=== PATIENT | female | born 1950 | race Caucasian/White ===

== ENCOUNTER 2022-12-05 14:49 | Inpatient (IN) | payer MEDICARE, MEDICAID, SELFPAY ==
[2022-12-05 15:36] VITALS: BP 140/83; PULSE 129; RESP 18; TEMP 36.6; O2SAT 96; BMI 23.4
[2022-12-05 16:47] LABS: Basophils % 0.2 %; Eosinophils % 0.1 %; Hematocrit 35.3 % (37.0-47.0); Hemoglobin 11.3 g/dL (11.5-15.3); Lymphocytes # 0.8 10^3/uL (0.8-4.8); Lymphocytes % 9.4 %; Mean Corpuscular Hemoglobin 30.2 pg (28.0-34.0); Mean Corpuscular Volume 94.4 fl (81-99); Mean Platelet Volume 9.6 fL (7.4-10.4); Monocytes # 0.7 10^3/uL (0.2-0.9); Monocytes % 7.9 %; Neutrophils # 7.16 10^3/uL (1.8-7.7); Neutrophils % 82.1 %; Nucleated Red Blood Cells % 0 %; Platelet Count 284 10^3/cmm (130-400); Red Blood Count 3.74 10^6/uL (4.1-5.3); Red Cell Distribution Width 11.6 % (12.1-15.1); White Blood Count 8.7 10^3/uL (4.0-10.0)
[2022-12-05 17:30] LABS: Lactic Sepsis W/Reflex 1.5 mmol/L (0.5-2.2)
[2022-12-05 17:40] LABS: Alanine Aminotransferase 11 U/L (0-33); Albumin Level 3.4 g/dL (3.5-5.2); Alkaline Phosphatase 72 U/L (35-105); Anion Gap 16.1 (5-19); Aspartate Amino Transferase 19 U/L (0-32); Blood Urea Nitrogen 34 mg/dL (8-23); Calcium 9.5 mg/dL (8.5-10.5); Carbon Dioxide 28 mmol/L (22-29); Chloride 101 mmol/L (98-107); Globulin 4.1 g/dL (1.3-4.6); Glomerular Filtration Rate 18.2 mL/min (90-130); Glucose 189 mg/dL (65-115); Magnesium 1.7 mg/dL (1.7-2.3); NT Pro B Type Natriuretic Pept 2022 pg/mL (0-125); Osmolality Calculated 305 mOsm/kg (285-295); Phosphorus 1.9 mg/dL (2.5-4.5); Potassium 4.1 mmol/L (3.5-5.1); Sodium 141 mmol/L (136-145); Total Bilirubin 0.2 mg/dL (0.15-1.2); Total Protein 7.5 g/dL (6.6-8.7)
--- NOTE | 2022-12-05 18:33 | W.ED.EXTPRO ---
HPI - Extremity Problem General: Chief complaint: Extremity Injury, Lower Stated complaint: swollen legs Time Seen by Provider: 12/05/22 18:16 Limitations: altered mental status (Patient has Alzheimer's and is unable to contribute any history..) History of Present Illness: Patient presents to the ER with complaints of bilateral lower extremity edema, chronic wounds, dressings that have been changed for a long time, kidney failure and maggots on her left leg underneath the bandage. Patient is [place]. Patient's family states she does not walk and they let her just sit all day with her feet dangling. Family states they never check on her. She has had her dressing to her legs for a long long time per family. They took her to see her blueprinting machine operator Dr. Molina in [place] and he said she only has 20% kidney function and she needed to go to the ER to be admitted to the hospital. Patient brought her here because we are closer to them then [place] yes. Review of Systems General: Reports: ROS unobtainable due to mental status (Limited history obtained by family members.) Physical Exam Const: COMMON NORMALS: no acute distress, average body habitus, alert and well nourished HENMT: COMMON NORMALS: normocephalic, atraumatic, hearing grossly normal bilaterally, Normal external nose present and moist oral mucous membranes HEAD & SCALP: normocephalic and atraumatic NOSE: Normal external nose present Neck/C-Spine: COMMON NORMALS: full ROM, no lymphadenopathy, supple, no meningeal signs, no JVD and Thyroid normal THYROID: Thyroid normal Chest: COMMONS NORMALS: normal inspection of the chest and normal palpation of entire chest wall Resp: COMMON NORMALS: normal respiratory effort, No retractions, No use of accessory muscles and clear to auscultation bilaterally AUSCULTATION: clear to auscultation bilaterally Cardio: COMMON NORMALS: no JVD, regular rate, regular rhythm, S1 normal heart sound present and S2 normal heart sound present RATE: regular rate RHYTHM: regular rhythm HEART SOUNDS: S1 normal heart sound present and S2 normal heart sound present GI: COMMON NORMALS: Normal to inspection, nondistended, normoactive bowel sounds present, Soft to palpation, non-tender, No hepatosplenomegaly present and no masses PALPATION: Yes Soft to palpation and Yes No hepatosplenomegaly present Extremity: NARRATIVE EXTREMITY EXAM: Bilateral dressings to bilateral lower extremities. When dressings were removed multiple maggots were noted on left extremity. Areas are red irritated dry scaly but are not weeping I do not have an odor at the moment. Neuro: SENSORIUM/ORIENTATION: Yes alert MENINGEAL SIGNS: Yes no meningeal signs Course Vital Signs: Vital signs: Vital Signs Temperature 97.8 F 12/05/22 15:36 Pulse Rate 129 H 12/05/22 15:36 Respiratory Rate 18 12/05/22 15:36 Blood Pressure 140/83 12/05/22 15:36 Pulse Oximetry 96 12/05/22 15:36 Oxygen Delivery Me thod Room Air 12/05/22 15:36 MDM - Extremity (Nontraumatic) Medical Decision Making Patient presents to the ER for worsening kidney failure and also bilateral leg wounds with the left foot having maggots upon arrival. Patient was tachycardic upon arrival with a pulse of 129 bpm. Lab work was obtained, chest x-ray, EKG BUN/creatinine was elevated at 34 and 2.6, lactic acid was 1.5, magnesium 1.7, phosphorus 1.9, BNP was 2022, chest x-ray showed no acute findings EKG showed sinus tachycardia, patient was given 1 L bolus of normal saline Dr. Hu was consulted for observation secondary to bilateral leg wounds and renal insufficiency. Differential Diagnosis Unlikely herpes zoster, gout, cellulitis, superficial thrombophlebitis, deep venous thrombosis of upper extremity, lower extremity edema or deep vein thrombosis of lower extremity Medical Records I reviewed the patient's medical records. Lab Data I reviewed the patient's lab results. 12/05/22 16:36 12/05/22 16:36 Radiology Impressions Chest X-Ray 12/05/22 18:38 IMPRESSION: No acute findings. Laboratory Results WBC 8.7 10^3/uL (4.0-10.0) 12/05/22 16:36 RBC 3.74 10^6/uL (4.1-5.3) L 12/05/22 16:36 Hgb 11.3 g/dL (11.5-15.3) L 12/05/22 16:36 Hct 35.3 % (37.0-47.0) L 12/05/22 16:36 MCV 94.4 fl (81-99) 12/05/22 16:36 MCH 30.2 pg (28.0-34.0) 12/05/22 16:36 MCHC 32.0 g/dL (30.0-36.0) 12/05/22 16:36 RDW 11.6 % (12.1-15.1) L 12/05/22 16:36 Plt Count 284 10^3/cmm (130-400) 12/05/22 16:36 MPV 9.6 fL (7.4-10.4) 12/05/22 16:36 Neut % (Auto) 82.1 % 12/05/22 16:36 Lymph % (Auto) 9.4 % 12/05/22 16:36 [place] % (Auto) 7.9 % 12/05/22 16:36 Eos % (Auto) 0.1 % 12/05/22 16:36 Baso % (Auto) 0.2 % 12/05/22 16:36 Neut # (Auto) 7.16 10^3/uL (1.8-7.7) 12/05/22 16:36 Lymph # (Auto) 0.8 10^3/uL (0.8-4.8) 12/05/22 16:36 [place] # (Auto) 0.7 10^3/uL (0.2-0.9) 12/05/22 16:36 Eos # (Auto) 0.0 10^3/uL (0.0-0.8) 12/05/22 16:36 Baso # (Auto) 0.0 10^3/uL (0.0-0.1) 12/05/22 16:36 Nucleated RBC % (auto) 0 % 12/05/22 16:36 Nucleated RBCs # 0.0 /100WBC 12/05/22 16:36 Sodium 141 mmol/L (136-145) 12/05/22 16:36 Potassium 4.1 mmol/L (3.5-5.1) 12/05/22 16:36 Chloride 101 mmol/L (98-107) 12/05/22 16:36 Carbon Dioxide 28 mmol/L (22-29) 12/05/22 16:36 Anion Gap 16.1 (5-19) 12/05/22 16:36 BUN 34 mg/dL (8-23) H 12/05/22 16:36 Creatinine 2.6 mg/dL (0.5-0.9) H 12/05/22 16:36 GFR Calculation 18.2 mL/min (90-130) L 12/05/22 16:36 Glucose 189 mg/dL (65-115) H 12/05/22 16:36 Calculated Osmolality 305 mOsm/kg (285-295) H 12/05/22 16:36 Lactic Acid 1.5 mmol/L (0.5-2.2) 12/05/22 16:36 Calcium 9.5 mg/dL (8.5-10.5) 12/05/22 16:36 Phosphorus 1.9 mg/dL (2.5-4.5) L 12/05/22 16:36 Magnesium 1.7 mg/dL (1.7-2.3) 12/05/22 16:36 Total Bilirubin 0.2 mg/dL (0.15-1.2) 12/05/22 16:36 AST 19 U/L (0-32) 12/05/22 16:36 ALT 11 U/L (0-33) 12/05/22 16:36 Alkaline Phosphatase 72 U/L (35-105) 12/05/22 16:36 NT-Pro-B Natriuret Pep 2022 pg/mL (0-125) H 12/05/22 16:36 Total Protein 7.5 g/dL (6.6-8.7) 12/05/22 16:36 Albumin 3.4 g/dL (3.5-5.2) L 12/05/22 16:36 Globulin 4.1 g/dL (1.3-4.6) 12/05/22 16:36 EKG Data EKG 1: I personally reviewed and interpreted this EKG as follows: EKG interpretation date: 12/05/22 EKG interpretation time: 18:58 Prior EKG tracings: not available for review Interpretation: EKG showed sinus tachycardia with a ventricular rate of 127 bpm, IL interval 169, QRS duration 70, QTc of 459, nonspecific ST and T wave abnormality Discharge Plan Discharge Patient Disposition: Placed in Observation Clinical Impression: Open wound of both lower extremities, Acute kidney insufficiency, Tachycardia, Elevated brain natriuretic peptide (BNP) level Condition: Stable Coding Level of Care Code ED [employer] for [employer]g Fwd
--- NOTE | 2022-12-05 18:38 | XRR_ITS ---
PROCEDURE INFORMATION: Exam: XR Chest Exam date and time: 12/05/2022 7:40 PM Age: 72 years old Clinical indication: Other: Ble swelling; Additional info: Elevated bnp TECHNIQUE: Imaging protocol: Radiologic exam of the chest. Views: 1 view. COMPARISON: No relevant prior studies available. FINDINGS: Lungs: Unremarkable. No consolidation. Pleural spaces: Unremarkable. No pleural effusion. No pneumothorax. Heart/Mediastinum: Unremarkable. No cardiomegaly. Bones/joints: Unremarkable. XR/XR chest 1V portable [id number] IMPRESSION: No acute findings.
--- NOTE | 2022-12-05 18:38 | ECG_ITS ---
[facility] Test Date: 2022-12-05 Pat Name: Toma Dickson Department: Room: Gender: Female Breaster: : 1950 Requested By: Harshad Martins Order Number: [id number] Hanane MD: Barry Nathan M.D. Measurements Intervals [place] Rate: 127 P: 48 WI: 169 QRS: 26 QRSD: 70 T: 33 QT: 384 QTc: 559 Interpretive Statements SINUS TACHYCARDIA LOW QRS VOLTAGE IN PRECORDIAL LEADS [QRS DEFLECTION < 1.0 mV IN CHEST LEADS] NONSPECIFIC ST & T-WAVE ABNORMALITY ABNORMAL RHYTHM ECG No previous ECG available for comparison Electronically Signed On 12-06-2022 20:21:24 CDT by Barry Nathan M.D. [id number]
[2022-12-05] MEDS: sodium chloride 0.9% 1,000 ML 999 ML IV (19:31)
[2022-12-05 20:56] VITALS: BP 112/87; PULSE 113; RESP 16; O2SAT 100
[2022-12-05 21:38] VITALS: BP 106/57; PULSE 110; RESP 17; TEMP 36.8; O2SAT 95
--- NOTE | 2022-12-05 21:50 | P.HP_ITS ---
Providers/Chief Complaint Admitting Physician: Tuan Hu MD Primary Care Provider: Raffy Yarbrough M.D. Chief Complaint: swollen legs History of Present Illness Toma Dickson is a 72 year old female with a past medical history significant for chronic wounds and chronic kidney disease who presents to the emergency department from facility with reports of worsening renal function and worsening bilateral lower extremity wounds. Upon assessment, patient denies any complaints. She denies fevers, chills, nausea or emesis. She denies any past medical or surgical history. Does not appear to be a reliable historian. She appears to have dementia or presently currently confused. No family currently available for collateral information. Collateral from ED provider is the patient is a long time resident of [facility]. She reportedly saw her quality facilitator Dr Yarbrough in [place] where her kidney numbers were worsening and he reportedly recommended she be hospitalized. Family reported brought her to [facility] as it was closer for them rather than alternative hospitals. In the ED, patient was reportedly found to have maggots under one of her bandages covering her legs. Patient denies past medical, surgical, and family medical problems. Denies tobacco, alcohol and drug use. Review of Systems Narrative: A complete review of systems was obtained and is negative except as stated in HPI. Medications/Allergies Allergies Allergy/AdvReac Type Severity Reaction Status Date / Time cephalexin [From Keflex] Allergy ALGY-Anaphy Verified 12/05/22 21:04 laxis PFSH Acute PFSH: Medical History Renal insufficiency Vitals/I&O/Wt Last Vital Signs Temp 98.2 F 12/05/22 21:38 Pulse 110 H 12/05/22 21:38 Resp 17 12/05/22 21:38 BP 106/57 12/05/22 21:38 Pulse Ox 95 12/05/22 21:38 O2 Del Method Room Air 12/05/22 20:56 Weight last 48 hrs Weight 54.431 kg Physical Exam Narrative: General: Patient is awake. Alert. Head: Normocephalic. Atraumatic. EOM intact. Neck: No JVD. Cardiovascular: Tachycardic. No gallops. No murmurs. 2+ edema in BLE. Lungs: Clear to auscultation, no use of accessory muscles, no crackles or wheezes. Skin: No jaundice. Chronic skin changes with hemostasis in bilateral lower extremities. Chronic appearing wound bilateral lower extremities as well. No draining tracts or purulent material noted. Abdomen: Normal bowel sounds, abdomen soft and nontender. Genito Urinary: Genital exam not performed since complaints not related. Rectal: Rectal exam not performed since no symptoms indicated blood loss. Extremities: No cyanosis or clubbing. Musculoskeletal: No swollen or erythematous joints. Neurological: Moves all 4 extremities. No myoclonus. Data 12/05/22 16:36 12/05/22 16:36 Micro: Microbiology 12/05/22 19:31 Blood Culture - Preliminary Blood SPECIMEN COLLECTED 12/05/22 19:04 Blood Culture - Preliminary Blood SPECIMEN COLLECTED A&P Assessment and plan (1) Renal insufficiency: BUN 34 creatinine 2.6 Baseline renal function unknown Patient following with nephrology, Dr Yarbrough in [place] Start IV fluids Monitor renal function Obtain renal ultrasound Avoid nephrotoxins Monitor electrolytes Obtain further medical history when family present (2) Open wound of both lower extremities: Reports maggots were present per ED provider Lower extremities were cleaned in ED prior to my evaluation Continue routine wound care Qualifiers: Encounter type: initial encounter Qualified Code(s): S81.801A - Unspecified open wound, right lower leg, initial encounter; S81.802A - Unspecified open wound, left lower leg, initial encounter (3) Physical debility: Will need to see if case management can clarify baseline functional status with facility May need therapy (4) Altered mental state: Suspect dementia Obtain collateral information as above Avoid sedating medications Plan DVT ppx: Heparin Code: Assume full Attestations Medical Necessity Statement*: Expected hospitalization not to cross 2 midnights. Coding Level of Care Code Acute Code for [facility] Fwd Diagnoses Renal insufficiency N28.9 Open wound of both lower extremities S81.801A; S81.802A Encounter type: initial encounter Physical debility R53.81 Altered mental state R41.82
[2022-12-05 23:00] VITALS: BP 130/66; PULSE 104; RESP 16; TEMP 36.9; O2SAT 97
[2022-12-05 23:32] LABS: C Reactive Protein 25.4 mg/L (0.0-4.9)
[2022-12-05] MEDS: heparin 5,000 unit/mL INJ 1 mL 5000 UNIT SUBCUT (23:35)
[2022-12-05] MEDS: lactated ringers 1,000 ML 75 ML IV (23:36)
[2022-12-05 23:40] LABS: Procalcitonin 0.08 ng/mL (0-0.5)
[2022-12-06] VITALS: BP 130/66; PULSE 104; RESP 16; TEMP 36.9; O2SAT 97
--- NOTE | 2022-12-06 02:09 | US_ITS ---
WS: [id number] ULTRASOUND RENAL TECHNIQUE: Ultrasound examination of both kidneys. CLINICAL INFORMATION: renal insufficiency COMPARISON: None. FINDINGS: RIGHT: 7.3 mm simple cyst inferior pole RIGHT kidney Right kidney is normal in size and appearance. Echogenicity: Normal. Cortical thickness: 1.4 cm; Normal. Hydronephrosis: None. Perinephric fluid: None. Right kidney measures: 9.9 cm x 5.2 cm x 4.8 cm. LEFT: Left kidney is normal in size and appearance. Echogenicity: Normal. Cortical thickness: 1.0 cm; Normal. Hydronephrosis: None. Perinephric fluid: None. Left kidney measures: 8.1 cm x 3.5 cm x 3.3 cm. Normal visualized aorta. Prevoid bladder volume 167 cc. Post void bladder volume 3 cc Bilateral ureter jets visualized. US/US renal BI* [id number] IMPRESSION: 1. No hydronephrosis in either kidney. 2. Bilateral ureteral jets visualized. 3. No significant post void residual.
[2022-12-06 03:45] VITALS: BP 118/76; PULSE 103; RESP 17; TEMP 36.9; O2SAT 91
[2022-12-06 05:00] LABS: Basophils % 0.1 %; Eosinophils % 0.4 %; Hematocrit 30.6 % (37.0-47.0); Hemoglobin 9.7 g/dL (11.5-15.3); Lymphocytes # 1.1 10^3/uL (0.8-4.8); Lymphocytes % 14.9 %; Mean Corpuscular HGB Conc 31.7 g/dL (30.0-36.0); Mean Corpuscular Hemoglobin 29.6 pg (28.0-34.0); Mean Corpuscular Volume 93.3 fl (81-99); Mean Platelet Volume 9.6 fL (7.4-10.4); Monocytes # 0.5 10^3/uL (0.2-0.9); Monocytes % 7.2 %; Neutrophils # 5.74 10^3/uL (1.8-7.7); Neutrophils % 77.1 %; Nucleated Red Blood Cells % 0 %; Platelet Count 265 10^3/cmm (130-400); Red Blood Count 3.28 10^6/uL (4.1-5.3); Red Cell Distribution Width 11.7 % (12.1-15.1); White Blood Count 7.5 10^3/uL (4.0-10.0)
[2022-12-06 05:27] LABS: Anion Gap 11.7 (5-19); Blood Urea Nitrogen 28 mg/dL (8-23); Calcium 8.5 mg/dL (8.5-10.5); Carbon Dioxide 28 mmol/L (22-29); Chloride 106 mmol/L (98-107); Glomerular Filtration Rate 23.3 mL/min (90-130); Glucose 149 mg/dL (65-115); Magnesium 1.6 mg/dL (1.7-2.3); Osmolality Calculated 300 mOsm/kg (285-295); Phosphorus 2.8 mg/dL (2.5-4.5); Potassium 4.7 mmol/L (3.5-5.1); Sodium 141 mmol/L (136-145)
[2022-12-06 07:30] VITALS: BP 123/73; PULSE 87; RESP 20; TEMP 36.3; O2SAT 93
--- NOTE | 2022-12-06 08:24 | PC.PHAR ---
Addendum entered by Lisa May 12/06/22 09:10: waiting on med list from [facility] Original Note: UNABLE TO DO MED REC AT THIS TIME- WAITING FOR PTS CONTACT [facility] TO CALL BACK
[2022-12-06] MEDS: magnesium sulfate premix 2 GM/50 ML PIGGYBACK IV (10:19)
[2022-12-06 11:21] VITALS: BP 134/68; PULSE 94; RESP 22; TEMP 36.3; O2SAT 98
[2022-12-06] MEDS: heparin 5,000 unit/mL INJ 1 mL 5000 UNIT SUBCUT ×2 (11:34→23:42)
[2022-12-06 16:00] VITALS: BP 131/71; PULSE 76; RESP 20; TEMP 36.2; O2SAT 90
--- NOTE | 2022-12-06 17:41 | P.PN_ITS ---
Subjective Subjective: She is awake, semireclined in bed, holding onto a doll. Interactive, denies pain. Cannot provide history. Pencil sharpener and scissors were found in her pocket earlier in the morning. Vitals/I&O/Wt Last Vital Signs Temp 97.1 F L 12/06/22 16:00 Pulse 76 12/06/22 16:00 Resp 20 H 12/06/22 16:00 BP 131/71 12/06/22 16:00 Pulse Ox 90 12/06/22 16:00 O2 Del Method Room Air 12/06/22 16:00 12/06/22 12/06/22 12/06/22 06:59 14:59 22:59 Intake Total 1000 / 1000 240 / 240 Balance 1000 / 1000 240 / 240 Weight last 48 hrs Weight 54.431 kg Physical Exam Const: COMMON NORMALS: alert ORIENTATION/CONSCIOUSNESS: Yes awake HENMT: COMMON NORMALS: oropharynx normal Neck/C-Spine: COMMON NORMALS: no JVD Resp: COMMON NORMALS: normal respiratory effort and clear to auscultation bilaterally AUSCULTATION: clear to auscultation bilaterally Cardio: COMMON NORMALS: no JVD, regular rhythm, S1 normal heart sound present, S2 normal heart sound present and No murmurs present (Cardio) RHYTHM: regular rhythm HEART SOUNDS: S1 normal heart sound present and S2 normal heart sound present GI: COMMON NORMALS: Normal to inspection, nondistended, normoactive bowel sounds present, Soft to palpation and non-tender PALPATION: Yes Soft to palpation Extremity: COMMON NORMALS: no joint enlargement OTHER: Some nonpitting edema Neuro: COMMON NORMALS: moves all extremities SENSORIUM/ORIENTATION: Yes alert Skin: OTHER: Erythema, abrasion, shallow ulceration bilateral lower anterolateral legs above the ankle. Worse on the left. Mild oozing. No purulence. No tunneling or undermining. Data 12/06/22 04:40 12/06/22 04:40 Micro: Microbiology 12/05/22 19:31 Blood Culture - Preliminary Blood SPECIMEN COLLECTED 12/05/22 19:04 Blood Culture - Preliminary Blood SPECIMEN COLLECTED A&P Assessment and plan (1) Renal insufficiency: Mild improvement in creatinine down to 2.1. BUN 28. Continue IV fluid challenge. Noted results of kidney ultrasound, no obstruction/hydronephrosis. Hold diuretics. At risk of fluid overload/CHF, monitor volume status. Oxygenation. Hold fenofibrate. Monitor electrolytes. Sodium noted 141, bicarb 28, anion gap 11.7. Recheck chemistry. Baseline renal function unknown Patient following with nephrology, Dr Yarbrough in [place] (2) Open wound of both lower extremities: Wounds appear clean. Elevate lower extremities. Continue wound care. Depending on progress, consider compression dressing. Follow-up with wound care clinic. Qualifiers: Encounter type: initial encounter Qualified Code(s): S81.801A - Unsp ecified open wound, right lower leg, initial encounter; S81.802A - Unspecified open wound, left lower leg, initial encounter (3) Physical debility: Will need to see if case management can clarify baseline functional status with facility Noted CM documentation. Requires 1-2 person assistance at baseline. CM working with family with regards to placement. (4) Altered mental state: Possible acute encephalopathy superimposed on chronic cognitive dysfunction. Possible metabolic encephalopathy secondary to RUTH. Continue to reorient. Patient requires long-term care. Normally 1-2 person assist. Avoid sedating medications Unable to reach sister on listed phone number, goes straight to voicemail. Afebrile. Without leukocytosis. No suggestion of acute infection. Plan Confirm home medications. Hypomagnesemia: Replace. Recheck magnesium. Discussed with nursing, case management. Attestations Medical Necessity Statement*: Admission over 2 midnights required for assessment and management of RUTH, IV fluid challenge, at risk of fluid overload, possible acute encephalopathy in a lady with baseline cognitive dysfunction. Diagnoses Renal insufficiency N28.9 Open wound of both lower extremities S81.801A; S81.802A Encounter type: initial encounter Physical debility R53.81 Altered mental state R41.82
[2022-12-06 19:17] LABS: Add Urine Microscopic? NO; Charge for UA Resulting for Rev
[2022-12-06 19:26] LABS: Bilirubin Urine Neg (Negative); Blood Urine Neg (Negative); Glucose Urine UA Norm (Normal); Ketones Urine Negative (Negative); Leukocyte Esterase Urine Negative (Negative); Nitrate Urine Negative (Negative); Protein Urine Neg (Negative); Sulfosalicylic Acid Urine Negative (Negative); Urine Appearance Clear (CLEAR); Urine Color Yellow (Yellow); Urobilinogen Urine Norm (Negative); pH Urine 8 (5-7)
[2022-12-06 20:00] VITALS: BP 165/79; PULSE 99; RESP 18; TEMP 36.3; O2SAT 97
[2022-12-06] MEDS: lactated ringers 1,000 ML 75 ML IV (23:39)
[2022-12-07] VITALS: BP 114/65; PULSE 87; RESP 17; TEMP 36.7; O2SAT 96
[2022-12-07 03:34] VITALS: BP 115/61; PULSE 83; RESP 17; TEMP 36.8; O2SAT 95
[2022-12-07 05:31] LABS: Basophils % 0.4 %; Eosinophils # 0.2 10^3/uL (0.0-0.8); Eosinophils % 2.5 %; Hematocrit 32.6 % (37.0-47.0); Hemoglobin 10.2 g/dL (11.5-15.3); Lymphocytes # 1.1 10^3/uL (0.8-4.8); Lymphocytes % 16.3 %; Mean Corpuscular HGB Conc 31.3 g/dL (30.0-36.0); Mean Corpuscular Hemoglobin 29.7 pg (28.0-34.0); Mean Corpuscular Volume 94.8 fl (81-99); Mean Platelet Volume 9.2 fL (7.4-10.4); Monocytes # 0.5 10^3/uL (0.2-0.9); Monocytes % 7.1 %; Neutrophils # 4.94 10^3/uL (1.8-7.7); Neutrophils % 73.3 %; Nucleated Red Blood Cells % 0 %; Platelet Count 257 10^3/cmm (130-400); Red Blood Count 3.44 10^6/uL (4.1-5.3); Red Cell Distribution Width 11.7 % (12.1-15.1); White Blood Count 6.8 10^3/uL (4.0-10.0)
[2022-12-07 05:55] LABS: Anion Gap 12.3 (5-19); Blood Urea Nitrogen 25 mg/dL (8-23); Calcium 8.9 mg/dL (8.5-10.5); Carbon Dioxide 25 mmol/L (22-29); Chloride 108 mmol/L (98-107); Glomerular Filtration Rate 24.6 mL/min (90-130); Glucose 125 mg/dL (65-115); Magnesium 1.9 mg/dL (1.7-2.3); Osmolality Calculated 298 mOsm/kg (285-295); Potassium 4.3 mmol/L (3.5-5.1); Sodium 141 mmol/L (136-145)
[2022-12-07 08:45] VITALS: BP 142/72; PULSE 112; RESP 17; TEMP 36.3; O2SAT 92
[2022-12-07] MEDS: heparin 5,000 unit/mL INJ 1 mL 5000 UNIT SUBCUT ×2 (10:52→22:21)
[2022-12-07 11:55] VITALS: BP 128/63; PULSE 101; RESP 18; TEMP 36.7; O2SAT 96
[2022-12-07] MEDS: lactated ringers 1,000 ML 75 ML IV (12:07)
--- NOTE | 2022-12-07 13:26 | PM.PN ---
Subjective Subjective: She denies any complaints. She knows she is in [place]. Unable to tell me that she is in the hospital. He denies any pain or discomfort. Vitals/I&O/Wt Last Vital Signs Temp 98.0 F 12/07/22 11:55 Pulse 101 H 12/07/22 11:55 Resp 18 12/07/22 11:55 BP 128/63 12/07/22 11:55 Pulse Ox 96 12/07/22 11:55 O2 Del Method Room Air 12/07/22 11:55 12/06/22 12/07/22 12/07/22 22:59 06:59 14:59 Intake Total 170 / 1410 1295 / 1295 Output Total 100 / 100 375 / 475 Balance 70 / 1310 -375 / 935 1295 / 1295 Weight last 48 hrs Weight 54.431 kg Physical Exam Const: COMMON NORMALS: alert ORIENTATION/CONSCIOUSNESS: Yes awake HENMT: COMMON NORMALS: oropharynx normal Neck/C-Spine: COMMON NORMALS: no JVD Resp: COMMON NORMALS: normal respiratory effort and clear to auscultation bilaterally AUSCULTATION: clear to auscultation bilaterally Cardio: COMMON NORMALS: no JVD, regular rhythm, S1 normal heart sound present, S2 normal heart sound present and No murmurs present (Cardio) RHYTHM: regular rhythm HEART SOUNDS: S1 normal heart sound present and S2 normal heart sound present GI: COMMON NORMALS: Normal to inspection, nondistended, normoactive bowel sounds present, Soft to palpation and non-tender PALPATION: Yes Soft to palpation Extremity: COMMON NORMALS: no joint enlargement OTHER: Some nonpitting edema Neuro: COMMON NORMALS: moves all extremities SENSORIUM/ORIENTATION: Yes alert Skin: OTHER: Erythema, abrasion, shallow ulceration bilateral lower anterolateral legs above the ankle. Worse on the left. Behavioral Modification Assistant today. No purulence. No tunneling or undermining. Data 12/07/22 05:22 12/07/22 05:22 Micro: Microbiology 12/05/22 19:31 Blood Culture - Preliminary Blood NEGATIVE TO DATE 12/05/22 19:04 Blood Culture - Preliminary Blood NEGATIVE TO DATE A&P Assessment and plan (1) Renal insufficiency: Further mild improvement in creatinine down to 2. BUN 25. Discussing with her sister she states that she had seen a optical model maker and tester previously in [place]. We will request records. Continue gentle IV hydration. Reassess renal function. Monitor for fluid overload. Diuretics on hold. Bicarb 25, anion gap 12.3. Sodium 141, potassium 4.3. Hold diuretics. At risk of fluid overload/CHF, monitor volume status. Oxygenation. Hold fenofibrate. Recheck chemistry Baseline renal function unknown, although per discussion with her sister does have CKD as well. (2) Open wound of both lower extremities: Wounds appear clean. Elevate lower extremities. Continue wound care. Depending on progress, consider compression dressing. Follow-up with wound care clinic. Qualifiers: Encounter type: initial encounter Qualified Code(s): S81.801A - Unspecified open wound, right lower leg, initial encounter; S81.802A - Unspecified open wound, left lower leg, initial encounter (3) Physical debility: Will need to see if case management can clarify baseline functional status with facility Noted CM documentation. Requires 1-2 person assistance at baseline. Unable to function dependently, case management working with family regarding placement arrangements. (4) Altered mental state: Sister states she is currently at baseline mental status. Possible acute encephalopathy resolved superimposed on chronic cognitive dysfunction. Possible metabolic encephalopathy secondary to RUTH. Continue to reorient. Patient requires long-term care. Normally 1-2 person assist. Avoid sedating medications Sister gives history of developmental delay with cognitive dysfunction. Unable to function dependently, case management working with family regarding placement arrangements. Afebrile. Without leukocytosis. No suggestion of acute infection. Plan Resuming several of her home medications. Hypomagnesemia: Magnesium doing better, 1.9. Recheck magnesium. Discussed with case management during rounds. Attestations Medical Necessity Statement*: Continue admission for assessment and management of RUTH, wound care, post discharge planning and arrangements for a lady with developmental delay with cognitive function, unable to independently. Diagnoses Renal insufficiency N28.9 Open wound of both lower extremities S81.801A; S81.802A Encounter type: initial encounter Physical debility R53.81 Altered mental state R41.82
[2022-12-07 15:16] VITALS: BP 140/66; PULSE 84; RESP 18; TEMP 36.9
[2022-12-07] MEDS: atorvastatin 40 mg Tablet 20 MG PO (16:34)
[2022-12-07] MEDS: sodium bicarbonate 650 mg Tablet PO (16:34)
[2022-12-07 20:00] VITALS: BP 136/79; PULSE 98; RESP 18; TEMP 36.6; O2SAT 96
[2022-12-08] VITALS: BP 126/78; PULSE 68; RESP 16; TEMP 36.6; O2SAT 95
[2022-12-08] MEDS: lactated ringers 1,000 ML 30 ML IV (01:44)
[2022-12-08 03:52] VITALS: BP 128/88; PULSE 65; RESP 14; TEMP 36.7; O2SAT 98
[2022-12-08 04:55] LABS: Basophils % 0.6 %; Eosinophils # 0.2 10^3/uL (0.0-0.8); Eosinophils % 3.3 %; Hematocrit 31.6 % (37.0-47.0); Lymphocytes # 1.4 10^3/uL (0.8-4.8); Lymphocytes % 21.9 %; Mean Corpuscular HGB Conc 31.6 g/dL (30.0-36.0); Mean Corpuscular Hemoglobin 29.9 pg (28.0-34.0); Mean Corpuscular Volume 94.6 fl (81-99); Mean Platelet Volume 9.9 fL (7.4-10.4); Monocytes # 0.5 10^3/uL (0.2-0.9); Monocytes % 8.4 %; Neutrophils # 4.17 10^3/uL (1.8-7.7); Neutrophils % 65.2 %; Nucleated Red Blood Cells % 0 %; Platelet Count 270 10^3/cmm (130-400); Red Blood Count 3.34 10^6/uL (4.1-5.3); Red Cell Distribution Width 11.6 % (12.1-15.1); White Blood Count 6.4 10^3/uL (4.0-10.0)
[2022-12-08 05:14] LABS: Anion Gap 13.2 (5-19); Blood Urea Nitrogen 22 mg/dL (8-23); Calcium 8.5 mg/dL (8.5-10.5); Carbon Dioxide 26 mmol/L (22-29); Chloride 105 mmol/L (98-107); Glomerular Filtration Rate 34.3 mL/min (90-130); Glucose 118 mg/dL (65-115); Magnesium 1.7 mg/dL (1.7-2.3); Osmolality Calculated 294 mOsm/kg (285-295); Potassium 4.2 mmol/L (3.5-5.1); Sodium 140 mmol/L (136-145)
[2022-12-08 08:00] VITALS: BP 156/90; PULSE 81; RESP 16; TEMP 36.4; O2SAT 95
[2022-12-08] MEDS: aspirin 81 mg EC Tablet PO (10:37)
[2022-12-08] MEDS: metoprolol succinate ER (24 HR) 100 mg Tablet PO (10:37)
[2022-12-08] MEDS: sodium bicarbonate 650 mg Tablet PO ×3 (10:37→20:14)
[2022-12-08] MEDS: rivaroxaban 10 mg Tablet PO (10:37)
[2022-12-08] MEDS: magnesium sulfate premix 2 GM/50 ML PIGGYBACK IV (10:45)
--- NOTE | 2022-12-08 11:17 | PM.PN ---
Subjective Subjective: Denies pain or discomfort. Vitals/I&O/Wt Last Vital Signs Temp 97.5 F L 12/08/22 08:00 Pulse 81 12/08/22 08:00 Resp 16 12/08/22 08:00 BP 156/90 12/08/22 08:00 Pulse Ox 95 12/08/22 08:00 O2 Del Method Room Air 12/08/22 08:00 12/07/22 12/08/22 12/08/22 22:59 06:59 14:59 Intake Total 240 / 1535 1000 / 2535 360 / 360 Balance 240 / 1535 1000 / 2535 360 / 360 Physical Exam Const: COMMON NORMALS: alert ORIENTATION/CONSCIOUSNESS: Yes awake HENMT: COMMON NORMALS: oropharynx normal Neck/C-Spine: COMMON NORMALS: no JVD Resp: COMMON NORMALS: normal respiratory effort and clear to auscultation bilaterally AUSCULTATION: clear to auscultation bilaterally Cardio: COMMON NORMALS: no JVD, regular rhythm, S1 normal heart sound present, S2 normal heart sound present and No murmurs present (Cardio) RHYTHM: regular rhythm HEART SOUNDS: S1 normal heart sound present and S2 normal heart sound present GI: COMMON NORMALS: Normal to inspection, nondistended, normoactive bowel sounds present, Soft to palpation and non-tender PALPATION: Yes Soft to palpation Extremity: COMMON NORMALS: no joint enlargement OTHER: Some nonpitting edema Neuro: COMMON NORMALS: moves all extremities SENSORIUM/ORIENTATION: Yes alert Skin: OTHER: Erythema, abrasion, shallow ulceration bilateral lower anterolateral legs above the ankle. Worse on the left. 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 No purulence. No tunneling or undermining. Data 12/08/22 04:35 12/08/22 04:35 A&P Assessment and plan (1) Renal insufficiency: Noted improving renal function, BUN down to 22, creatinine down to 1.5. Anion gap 13.2. Bicarb 26. Sodium 140, potassium 4.2. We will try to hold additional IV fluid. Hold off diuretic for now. Reassess renal function. Oral intake as tolerating. Hold diuretics. At risk of fluid overload/CHF, monitor volume status. Oxygenation. Hold fenofibrate. Recheck chemistry Baseline renal function unknown, although per discussion with her sister does have CKD as well. (2) Open wound of both lower extremities: Requesting compression dressings. Discussed with PT. Wounds appear clean. Elevate lower extremities. Continue wound care. Follow-up with wound care clinic. Qualifiers: Encounter type: initial encounter Qualified Code(s): S81.801A - Unspecified open wound, right lower leg, initial encounter; S81.802A - Unspecified open wound, left lower leg, initial encounter (3) Physical debility: Will need to see if case management can clarify baseline functional status with facility Noted CM documentation. Requires 1-2 person assistance at baseline. Unable to function dependently, case management working with family regarding placement arrangements. (4) Altered mental state: Sister states she is currently at baseline mental status. Possible acute encephalopathy resolved superimposed on chronic cognitive dysfunction. Possible metabolic encephalopathy secondary to RUTH. Continue to reorient. Patient requires long-term care. Normally 1-2 person assist. Avoid sedating medications Sister gives history of developmental delay with cognitive dysfunction. Unable to function dependently, case management working with family regarding placement arrangements. Afebrile. Without leukocytosis. No suggestion of acute infection. Plan Anemia: Hemoglobin appears steady around 10. MCV 94.6. Suspect secondary to CKD. Will need to follow-up with PCP. Hypomagnesemia: Magnesium down to 1.7. Replace magnesium. Recheck Discussed with case management, arrangements underway for placement. Attestations Medical Necessity Statement*: Continue admission for assessment and management of RUTH, wound care, post discharge planning and arrangements for a lady with developmental delay with cognitive function, unable to independently. Diagnoses Renal insufficiency N28.9 Open wound of both lower extremities S81.801A; S81.802A Encounter type: initial encounter Physical debility R53.81 Altered mental state R41.82
[2022-12-08] MEDS: ferrous sulfate EC 325 mg Tablet PO (11:53)
[2022-12-08 12:00] VITALS: BP 144/79; PULSE 77; RESP 17; TEMP 36.5; O2SAT 94
[2022-12-08 16:00] VITALS: BP 109/58; PULSE 67; RESP 15; TEMP 36.3; O2SAT 91
[2022-12-08] MEDS: atorvastatin 40 mg Tablet 20 MG PO (17:48)
[2022-12-08 19:42] VITALS: BP 131/52; PULSE 65; RESP 14; TEMP 36.6; O2SAT 94
[2022-12-09] VITALS: BP 135/80; PULSE 57; RESP 14; TEMP 36.5; O2SAT 95
[2022-12-09 03:45] VITALS: BP 126/79; PULSE 66; RESP 16; TEMP 36.6; O2SAT 95
[2022-12-09 05:18] LABS: Basophils % 0.7 %; Eosinophils # 0.2 10^3/uL (0.0-0.8); Eosinophils % 4.2 %; Hematocrit 33.9 % (37.0-47.0); Hemoglobin 10.8 g/dL (11.5-15.3); Lymphocytes # 1.6 10^3/uL (0.8-4.8); Lymphocytes % 28.1 %; Mean Corpuscular HGB Conc 31.9 g/dL (30.0-36.0); Mean Corpuscular Hemoglobin 30.1 pg (28.0-34.0); Mean Corpuscular Volume 94.4 fl (81-99); Mean Platelet Volume 9.5 fL (7.4-10.4); Monocytes # 0.5 10^3/uL (0.2-0.9); Monocytes % 8.8 %; Neutrophils # 3.33 10^3/uL (1.8-7.7); Neutrophils % 57.7 %; Nucleated Red Blood Cells % 0 %; Platelet Count 251 10^3/cmm (130-400); Red Blood Count 3.59 10^6/uL (4.1-5.3); Red Cell Distribution Width 11.7 % (12.1-15.1); White Blood Count 5.8 10^3/uL (4.0-10.0)
[2022-12-09 05:36] LABS: Anion Gap 11.3 (5-19); Blood Urea Nitrogen 21 mg/dL (8-23); Calcium 8.2 mg/dL (8.5-10.5); Carbon Dioxide 28 mmol/L (22-29); Chloride 105 mmol/L (98-107); Glomerular Filtration Rate 29.7 mL/min (90-130); Glucose 104 mg/dL (65-115); Magnesium 1.8 mg/dL (1.7-2.3); Osmolality Calculated 293 mOsm/kg (285-295); Potassium 4.3 mmol/L (3.5-5.1); Sodium 140 mmol/L (136-145)
[2022-12-09 08:00] VITALS: BP 152/75; PULSE 60; RESP 16; TEMP 36.5; O2SAT 92
[2022-12-09] MEDS: sodium bicarbonate 650 mg Tablet PO (08:01)
[2022-12-09] MEDS: metoprolol succinate ER (24 HR) 100 mg Tablet PO (08:01)
[2022-12-09] MEDS: rivaroxaban 10 mg Tablet PO (08:01)
[2022-12-09] MEDS: aspirin 81 mg EC Tablet PO (08:01)
[2022-12-09 09:04] LABS: SARS Covid-2 Antigen negative (Negative)
--- NOTE | 2022-12-09 09:12 | PC.SOCIAL ---
IMM update IMM updated with patient's guardian Bobbi. Verbalized an understanding. Copy Pg 2 provided. Initialled, dated, timed, and placed in chart.
[2022-12-09 12:00] VITALS: BP 119/62; PULSE 61; RESP 15; TEMP 36.3; O2SAT 91
--- NOTE | 2022-12-09 12:10 | P.DS_ITS ---
Discharge Providers Date of Admission: 12/06/22 18:07 Date of Discharge: December 09, 2022 Attending Provider at Admission: Tuan Hu MD Attending Provider at Discharge: Chau Quiros Primary Care Provider: Raffy Yarbrough M.D. Diagnoses at Discharge Discharge Diagnosis (1) Renal insufficiency: Status: Acute (2) Open wound of both lower extremities: Status: Acute Qualifiers: Encounter type: initial encounter Qualified Code(s): S81.801A - Unspecified open wound, right lower leg, initial encounter; S81.802A - Unspecified open wound, left lower leg, initial encounter (3) Physical debility: Status: Acute (4) Altered mental state: Status: Acute Reason for Visit Reason for Visit: swollen legs Hospital Course Hospital Course Clean lower extremity wounds daily. 72-year-old lady with history of developmental delay, cognitive dysfunction, chronic kidney disease, following with nephrology, bilateral lower extremity wounds was admitted due to worsening in the wounds, finding of maggot, as well as worsening renal function, on presentation with suspected RUTH on CKD, creatinine up to 2.6, received gentle IV hydration, diuretic was held, fenofibrate was held. Creatinine with gradual improvement down to 1.5-1.7. IV fluids held. She is asked for now to hold fenofibrate until renal function is stable. Please follow-up renal function next week. Follow-up with nephrology. Avoid nephrotoxins. Lower extremity wounds bilateral anterior lateral lower legs, with some mild weeping, shallow ulcerations, suspected secondary to venous insufficiency ulcers, wounds cleansed initially, no tunneling or undermining, no purulence, no surrounding erythema, compression dressings requested, please continue wound care, compression dressings. Follow-up with wound care clinic. Initially concern for altered mental status superimposed on cognitive dysfunction, this appears to have resolved. She is at baseline mental status as per discussion with her sister who is her guardian. Physical Exam Const: COMMON NORMALS: alert ORIENTATION/CONSCIOUSNESS: Yes awake HENMT: COMMON NORMALS: oropharynx normal Neck/C-Spine: COMMON NORMALS: no JVD Resp: COMMON NORMALS: normal respiratory effort and clear to auscultation bilaterally AUSCULTATION: clear to auscultation bilaterally Cardio: COMMON NORMALS: no JVD, regular rhythm, S1 normal heart sound present, S2 normal heart sound present and No murmurs present (Cardio) RHYTHM: regular rhythm HEART SOUNDS: S1 normal heart sound present and S2 normal heart sound present GI: COMMON NORMALS: Normal to inspection, nondistended, normoactive bowel sounds present, Soft to palpation and non-tender PALPATION: Yes Soft to palpation Extremity: COMMON NORMALS: no joint enlargement OTHER: Some nonpitting edema Neuro: COMMON NORMALS: moves all extremities SENSORIUM/ORIENTATION: Yes alert Skin: OTHER: Previously erythema, abrasion of shallow ulceration bilateral lower anterolateral legs above the ankle. Worse on the left. 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 No purulence. No tunneling or undermining. Today she did not allow me to have a look at her legs. Discharge Data Studies Completed and Pending Completed Studies During Hospitalization Category Date Time Status XR chest 1V portable [id number] Stat Exams 12/05/22 18:38 Completed US kidney bilateral [US renal BI* [id number]] Routine Ultrasound 12/06/22 02:09 Completed Pending at discharge Category Date Time Status Blood Culture Stat Lab 12/05/22 19:31 Results Radiology Impressions Chest X-Ray 12/05/22 18:38 IMPRESSION: No acute findings. Renal Ultrasound 12/06/22 02:09 IMPRESSION: 1. No hydronephrosis in either kidney. 2. Bilateral ureteral jets visualized. 3. No significant post void residual. Laboratory Results WBC 5.8 10^3/uL (4.0-10.0) 12/09/22 05:01 RBC 3.59 10^6/uL (4.1-5.3) L 12/09/22 05:01 Hgb 10.8 g/dL (11.5-15.3) L 12/09/22 05:01 Hct 33.9 % (37.0-47.0) L 12/09/22 05:01 MCV 94.4 fl (81-99) 12/09/22 05:01 MCH 30.1 pg (28.0-34.0) 12/09/22 05:01 MCHC 31.9 g/dL (30.0-36.0) 12/09/22 05:01 RDW 11.7 % (12.1-15.1) L 12/09/22 05:01 Plt Count 251 10^3/cmm (130-400) 12/09/22 05:01 MPV 9.5 fL (7.4-10.4) 12/09/22 05:01 Neut % (Auto) 57.7 % 12/09/22 05:01 Lymph % (Auto) 28.1 % 12/09/22 05:01 Shelby % (Auto) 8.8 % 12/09/22 05:01 Eos % (Auto) 4.2 % 12/09/22 05:01 Baso % (Auto) 0.7 % 12/09/22 05:01 Neut # (Auto) 3.33 10^3/uL (1.8-7.7) 12/09/22 05:01 Lymph # (Auto) 1.6 10^3/uL (0.8-4.8) 12/09/22 05:01 Shelby # (Auto) 0.5 10^3/uL (0.2-0.9) 12/09/22 05:01 Eos # (Auto) 0.2 10^3/uL (0.0-0.8) 12/09/22 05:01 Baso # (Auto) 0.0 10^3/uL (0.0-0.1) 12/09/22 05:01 Nucleated RBC % (auto) 0 % 12/09/22 05:01 Nucleated RBCs # 0.0 /100WBC 12/09/22 05:01 Sodium 140 mmol/L (136-145) 12/09/22 05:01 Potassium 4.3 mmol/L (3.5-5.1) 12/09/22 05:01 Chloride 105 mmol/L (98-107) 12/09/22 05:01 Carbon Dioxide 28 mmol/L (22-29) 12/09/22 05:01 Anion Gap 11.3 (5-19) 12/09/22 05:01 BUN 21 mg/dL (8-23) 12/09/22 05:01 Creatinine 1.7 mg/dL (0.5-0.9) H 12/09/22 05:01 GFR Calculation 29.7 mL/min (90-130) L 12/09/22 05:01 Glucose 104 mg/dL (65-115) 12/09/22 05:01 Calculated Osmolality 293 mOsm/kg (285-295) 12/09/22 05:01 Lactic Acid 1.5 mmol/L (0.5-2.2) 12/05/22 16:36 Calcium 8.2 mg/dL (8.5-10.5) L 12/09/22 05:01 Phosphorus 2.8 mg/dL (2.5-4.5) 12/06/22 04:40 Magnesium 1.8 mg/dL (1.7-2.3) 12/09/22 05:01 Total Bilirubin 0.2 mg/dL (0.15-1.2) 12/05/22 16:36 AST 19 U/L (0-32) 12/05/22 16:36 ALT 11 U/L (0-33) 12/05/22 16:36 Alkaline Phosphatase 72 U/L (35-105) 12/05/22 16:36 C-Reactive Protein 25.4 mg/L (0.0-4.9) H 12/05/22 16:36 NT-Pro-B Natriuret Pep 2022 pg/mL (0-125) H 12/05/22 16:36 Total Protein 7.5 g/dL (6.6-8.7) 12/05/22 16:36 Albumin 3.4 g/dL (3.5-5.2) L 12/05/22 16:36 Globulin 4.1 g/dL (1.3-4.6) 12/05/22 16:36 Procalcitonin 0.08 ng/mL (0-0.5) 12/05/22 16:36 Urine Color Yellow (Yellow) 12/06/22 17:40 Urine Appearance Clear (CLEAR) 12/06/22 17:40 Urine pH 8 (5-7) H 12/06/22 17:40 Ur Specific Le[place]anc 1.010 (1.005-1.030) 12/06/22 17:40 Urine Protein Neg (Negative) 12/06/22 17:40 Urine Glucose (UA) Norm (Normal) 12/06/22 17:40 Urine Ketones Negative (Negative) 12/06/22 17:40 Urine Blood Neg (Negative) 12/06/22 17:40 Urine Nitrate Negative (Negative) 12/06/22 17:40 Urine Bilirubin Neg (Negative) 12/06/22 17:40 Prot Sulfosalicylic Acd Negative (Negative) 12/06/22 17:40 Urine Urobilinogen Norm mg/dL (Negative) 12/06/22 17:40 Ur Leukocyte Esterase Negative (Negative) 12/06/22 17:40 SARS-CoV-2 Ag (Rapid) negative (Negative) 12/09/22 08:27 Vitals Last Vital Signs Temp 97.7 F 12/09/22 08:00 Pulse 60 12/09/22 08:00 Resp 16 12/09/22 08:00 BP 152/75 12/09/22 08:00 Pulse Ox 92 12/09/22 08:00 O2 Del Method Room Air 12/09/22 03:45 Discharge Plan Discharge Patient Disposition: Xfer SNF Condition: Stable Prescriptions: Continued acetaminophen 325 mg Tablet 650 mg PO BID acetaminophen 325 mg Tablet 650 mg PO QID PRN (Reason: Pain) metoprolol succinate 100 mg tablet extended release 24 hr 100 mg PO DAILY aspirin [Aspir-81] 81 mg Tablet,Delayed Release (Dr/Ec) 81 mg PO DAILY Milk of Magnesia 400 mg/5 mL Suspension 30 ml PO DAILY PRN (Reason: Constipation) sodium bicarbonate 650 mg Tablet 650 mg PO TID meclizine 25 mg Tablet 25 mg PO QAM meclizine 25 mg Tablet 25 mg PO BID PRN (Reason: Dizziness) Dulcolax (bisacodyl) 10 mg Suppository 10 mg MS DAILY PRN (Reason: Constipation) Zocor 20 mg Tablet 20 mg PO QPM ferrous sulfate [Iron (ferrous sulfate)] 325 mg (65 mg iron) Tablet 325 mg PO QNOON Lasix 20 mg Tablet 20 mg PO DAILY cholecalciferol (vitamin D3) 1,250 mcg (50,000 unit) Capsule 1,250 mcg PO Q7D Xarelto 10 mg tablet 10 mg PO DAILY Changed Lasix 20 mg tablet 20 mg PO DAILY PRN (Reason: Edema) Qty: 30 0RF Held fenofibrate nanocrystallized [Tricor] 145 mg Tablet 145 mg PO BEDTIME Hold Instructions: Resume on 12/22/22. Discontinued levofloxacin [Levaquin] 500 mg Tablet 500 mg PO DAILY Zocor 20 mg tablet 20 mg PO DAILY Discharge Orders: Discharge Order (Routine); Ordered 12/09/22 Ordered By: Cahu Quiros Referrals: Primary, provider [Other] - 4-[address] [facility] [Outside] Raffy Yarbrough [Primary Care Provider] - 12/28/22 1:00 pm (Pending Review of labs) [facility], [Staff Physician] - 1 week (BL LE wounds) Activity Restrictions/Additional Instructions: Please recheck renal function next week. Fenofibrate held for now until renal function is stable. Follow-up with nephrology. Apply compression dressings to the wounds. Follow-up with wound care clinic. Discharge Attestations Time Spent in Discharge Care*: greater than 30 min Quality Metrics Clinical Quality Measures [ No reported AMI, CVA or VTE this stay] Coding Level of Care Code 73779 Total time (in minutes) for Discharge: 45 Diagnoses Renal insufficiency N28.9 Open wound of both lower extremities S81.801A; S81.802A Encounter type: initial encounter Physical debility R53.81 Altered mental state R41.82
--- NOTE | 2022-12-09 13:21 | PC.NURSE ---
Report called to Guerita CHUA at [facility].
[2022-12-09 13:52] VITALS: BP 119/62; PULSE 61; RESP 15; TEMP 36.8; O2SAT 91
--- NOTE | 2022-12-09 13:53 | PC.NURSE ---
IV removed intact. Patient tolerated well. Patient assisted into wheel chair and transported to [facility] by private car.
== END 2022-12-09 13:54 | disposition skilled nursing facility (03) | DRG 604 ==
LOC: ER 20:38 → MEDSURG 20:44
PROVIDERS: Admitting Provider Internal Medicine; Emergency Provider Emergency Medicine; PCP Hospitalist; Visit Provider Internal Medicine
DX: S81.801A Unspecified open wound, right lower leg, initial encounter (principal); G93.41 Metabolic encephalopathy; S81.802A Unspecified open wound, left lower leg, initial encounter; N18.9 Chronic kidney disease, unspecified; Z79.82 Long term (current) use of aspirin; D63.1 Anemia in chronic kidney disease; R62.50 Unspecified lack of expected normal physiological development in childhood; B87.1 Wound myiasis; E83.42 Hypomagnesemia; X58.XXXA Exposure to other specified factors, initial encounter
CPT/HCPCS: 36415; 71045; 76770; 80048; 80053; 81003; 83605; 83735; 83880; 84100; 84145; 85025; 86140; 87040; 87426; 93005; 96360; 96372; 97116; 97140; 97161; 99285; G0378; J1644; J3475; J7030; J7120

== ENCOUNTER 2024-08-23 09:54 | Outpatient (CLI) | payer MEDICARE, MEDICAID, SELFPAY ==
--- NOTE | 2024-08-23 10:00 | MM_ITS ---
WS: [id number] BILATERAL SCREENING DIGITAL TOMOSYNTHESIS MAMMOGRAM WITH CAD HISTORY: SCREENING COMPARISON: None available. Bilateral CC and MLO views with tomosynthesis and synthetic mammography submitted. Computer aided detection analyzed. Breast composition: The breasts are heterogeneously dense, which may obscure small masses. No suspicious masses, microcalcifications or architectural distortion. There are scattered calcifications within each breast. There is no grouping of calcifications. MM/MM scr tomosynthesis [id number] IMPRESSION: BI-RADS: 2 - Benign FOLLOW UP: 1 Year Follow-up
== END 2024-08-23 09:55 | disposition home or self-care (01) ==
LOC: RAD 09:59
PROVIDERS: PCP Electrodiagnostic Medicine; Visit Provider Electrodiagnostic Medicine
DX: Z12.31 Encounter for screening mammogram for malignant neoplasm of breast (principal); R92.333 Mammographic heterogeneous density, bilateral breasts; R92.1 Mammographic calcification found on diagnostic imaging of breast
CPT/HCPCS: 77063; 77067